=== PATIENT | female | born 1980 | race Caucasian/White ===

== ENCOUNTER → 2016-10-22 | Outpatient (CLI) | payer BC | LOC: BHSO 09:53 | DX: F33.1 Major depressive disorder, recurrent, moderate (principal) | CPT/HCPCS: 90791-AI ==

== ENCOUNTER → 2016-11-10 | Outpatient (CLI) | payer BC | LOC: BHSO 09:21 | DX: F41.1 Generalized anxiety disorder (principal) ==

== ENCOUNTER → 2017-06-07 | Outpatient (CLI) | payer BC | LOC: BHSO 09:22 | DX: F41.1 Generalized anxiety disorder (principal) ==

== ENCOUNTER → 2017-08-12 | Outpatient (CLI) | payer BC | LOC: BHSO 10:46 | DX: F41.1 Generalized anxiety disorder (principal) | CPT/HCPCS: G0463 ==

== ENCOUNTER → 2017-11-11 | Outpatient (CLI) | payer BC | LOC: BHSO 10:01 | DX: F41.1 Generalized anxiety disorder (principal) | CPT/HCPCS: G0463 ==

== ENCOUNTER → 2017-12-22 | Outpatient (CLI) | payer BC | LOC: BHSO 09:24 | DX: F41.1 Generalized anxiety disorder (principal) | CPT/HCPCS: G0463 ==

== ENCOUNTER → 2018-06-26 | Outpatient (CLI) | payer BC | LOC: BHSO 13:00 | DX: F41.1 Generalized anxiety disorder (principal) | CPT/HCPCS: G0463 ==

== ENCOUNTER → 2018-10-06 | Outpatient (CLI) | payer BC | LOC: BHSO 09:31 | DX: F41.1 Generalized anxiety disorder (principal) | CPT/HCPCS: G0463 ==

== ENCOUNTER 2019-03-26 10:07 | Emergency (ER) | payer OTHER ==
[~2019-03-26] VITALS: Ht 157.5 cm; Wt 66.4 kg
[2019-03-26 10:27] VITALS: TEMP 98.4
[2019-03-26] MEDS ORDERED: BRINTELLIX20 PO (10:31)
[2019-03-26] MEDS ORDERED: FLEXERIL 1010 MG/TAB PO (11:38)
[2019-03-26 11:44] VITALS: BP 115/73; PULSE 7
== END 2019-03-26 11:45 | disposition home or self-care (01) ==
LOC: COL.ER 10:07
DX: S16.1XXA Strain of muscle, fascia and tendon at neck level, initial encounter (principal); F41.9 Anxiety disorder, unspecified; F32.9 Major depressive disorder, single episode, unspecified; R40.2410 Glasgow coma scale score 13-15, unspecified time; V49.49XA Driver injured in collision with other motor vehicles in traffic accident, initial encounter
CPT/HCPCS: J1885

== ENCOUNTER → 2019-05-31 | Outpatient (CLI) | payer BC, OTHER ==
[~2019-05-31] MED LIST: BRINTELLIX20 PO; FLEXERIL 1010 MG/TAB PO
== END ==
LOC: BHSO 08:39
DX: F41.1 Generalized anxiety disorder (principal)
CPT/HCPCS: G0463

== ENCOUNTER 2019-07-27 15:51 | Emergency (ER) | payer OTHER, BC | END 2019-07-27 16:39 | disposition left against medical advice (07) | LOC: COL.ER 15:51 | DX: Z72.9 Problem related to lifestyle, unspecified (principal) ==

== ENCOUNTER → 2019-11-13 | Outpatient (CLI) | payer BC, OTHER | LOC: BHSO 16:00 | DX: F41.1 Generalized anxiety disorder (principal) | CPT/HCPCS: G0463 ==

== ENCOUNTER → 2021-02-12 | Outpatient (CLI) | payer BC | LOC: COL.RAD 07:04 | DX: R42 Dizziness and giddiness (principal) | CPT/HCPCS: Q9967 ==

== ENCOUNTER 2022-07-19 10:11 | Outpatient (RCR) | payer BC, OTHER | END 2022-08-10 | disposition home or self-care (01) | LOC: WSST | DX: H81.4 Vertigo of central origin (principal); R41.3 Other amnesia ==

== ENCOUNTER → 2022-08-25 | Outpatient (CLI) | payer BC | LOC: MC.RAD 13:55 | DX: Z12.31 Encounter for screening mammogram for malignant neoplasm of breast (principal) ==

== ENCOUNTER → 2022-08-25 | Outpatient (CLI) | payer BC | LOC: COL.RAD 07:59 | DX: F07.81 Postconcussional syndrome (principal); G43.809 Other migraine, not intractable, without status migrainosus; G90.9 Disorder of the autonomic nervous system, unspecified | CPT/HCPCS: A9575 ==